=== PATIENT | male | born 1955 | race Caucasian/White ===

== ENCOUNTER 2019-10-16 06:10 | Day surgery (SDC) | payer SELFPAY ==
[~2019-10-16] VITALS: Ht 185.4 cm; Wt 105.5 kg
[2019-10-16] VITALS (12 sets, daily range): BP systolic 94–129; BP diastolic 64–90
[2019-10-16] MEDS ORDERED: normal saline 1000ml 1,000 ML IV SCH (06:30)
[2019-10-16] MEDS ORDERED: MIDAZolam 1mg/ml 10ml vial IV ONE (06:30)
[2019-10-16] MEDS ORDERED: fentaNYL/PF 50MCG/1 ML 2ML syringe IV ONE (06:30)
[2019-10-16] MEDS ORDERED: DILT240C90 PO (06:37)
[2019-10-16] MEDS ORDERED: RIVA20TA PO (06:37)
[2019-10-16] MEDS ORDERED: amlodipine PO (06:37)
[2019-10-16] MEDS ORDERED: NITR0.4T51 SL (06:37)
[2019-10-16] MEDS ORDERED: FLEC100T2 PO ×2 (06:37)
[2019-10-16] MEDS ORDERED: METO-467 PO (06:37)
[2019-10-16 07:13] LABS: BASOPHILS % (AUTO) 0.4 % (0-1); EOSINOPHILS # (AUTO) 0.1 X10'3 (0-0.9); EOSINOPHILS % (AUTO) 1.7 % (0-6); HEMOGLOBIN 16.3 g/dl (14.0-17.9); LYMPHOCYTES # (AUTO) 1.5 X10'3 (1.1-4.8); LYMPHOCYTES % (AUTO) 24.1 % (21-51); MEAN CORPUSCULAR HEMOGLOBIN 31.3 PG (27.0-31.0); MEAN CORPUSCULAR VOLUME 92.2 FL (78-98); MEAN PLATELET VOLUME 7.6 FL (7.4-10.4); MONOCYTES # (AUTO) 0.7 X10'3 (0-0.9); MONOCYTES % (AUTO) 10.6 % (2-12); NEUTROPHILS % (AUTO) 63.2 % (42-75); PLATELET COUNT 199 X10'3 (140-440); RED CELL DISTRIBUTION WIDTH 13.7 % (11.5-14.5); WHITE BLOOD COUNT 6.4 X10'3 (4.5-11.0)
[2019-10-16 07:36] LABS: ALBUMIN 3.9 G/DL (3.4-5.0); ANION GAP 15 (8-16); BLOOD UREA NITROGEN 17 MG/DL (7-18); BUN/CREATININE RATIO 14.2 (5.4-32.0); CHLORIDE 101 MMOL/L (99-107); GLUCOSE 208 MG/DL (70-104); MAGNESIUM 2.1 MG/DL (1.5-2.4); POTASSIUM 3.9 MMOL/L (3.5-5.1); SODIUM 138 MMOL/L (135-145); TOTAL CARBON DIOXIDE 21.9 MMOL/L (24-32); eGFR 61 ML/MIN
--- NOTE | 2019-10-16 09:10 | NUR ---
Telephoned Dr. Anny shelby med rec. stated to continue all meds, no changes necessary.
== END 2019-10-16 10:30 | disposition home or self-care (01) ==
LOC: SSTAY O 06:10
PROVIDERS: ATTEND Internal Medicine Cardiovascular Disease
DX: I48.91 Unspecified atrial fibrillation (principal); Z79.899 Other long term (current) drug therapy
CPT/HCPCS: 36415; 80048; 83735; 85025; 85610; 92960; 93005; J2250; J3010; J7030

== ENCOUNTER 2024-10-24 09:00 | Inpatient (IN) | payer SELFPAY ==
[2024-10-24] VITALS (21 sets, daily range): BP systolic 82–124; BP diastolic 47–92; PULSE 30–78; RESP 6–18; TEMP 97–97.8; O2SAT 93–100
[~2024-10-24] VITALS: Ht 185.4 cm; Wt 100.2 kg
[~2024-10-24 09:00] MED LIST: DILT240C90 PO; FLEC100T2 PO; METO-467 PO; NITR0.4T51 SL; RIVA20TA PO; amlodipine PO
[2024-10-24] MEDS ORDERED: AMLO2.5T2 PO (09:26)
--- NOTE | 2024-10-24 09:27 | ELECTROCARDIOGRAPH REPORT ---
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 DENZEL Bishop Measurements Intervals [place] Rate: 76 P: 0 NE: 0 QRS: -27 QRSD: 136 T: -83 QT: 346 QTc: 390 Interpretive Statements Atrial fibrillation IVCD, consider atypical RBBB Electronically Signed On 10-24-2024 15:51:[address] DENZEL Bishop Please click the below link to view image of tracing.
[2024-10-24] MEDS ORDERED: fentaNYL/PF 50MCG/1 ML 2ML syringe ONE (09:37)
[2024-10-24] MEDS ORDERED: atropine 0.1mg/ml 10ml syringe ONE ×2 (09:38→10:17)
[2024-10-24] MEDS ORDERED: midazolam 1 mg/ML 2ml injection ONE ×4 (09:38→10:01)
[2024-10-24 09:48] LABS: MEAN PLATELET VOLUME 8.3 FL (7.4-10.4); RED CELL DISTRIBUTION WIDTH 13.5 % (11.5-14.5)
[2024-10-24 09:59] LABS: INR 1.2 INR
[2024-10-24 10:01] LABS: CREATININE 0.98 MG/DL (0.60-1.10); TOTAL CARBON DIOXIDE 26.1 MMOL/L (24-32); eCRCL 78 ML/MIN; eGFR 75 ML/MIN
--- NOTE | 2024-10-24 10:28 | CARDIOLOGY REPORT ---
DATE OF SERVICE: 10/24/2024 DICTATING PHYSICIAN: MYKEL CHEN DO PROCEDURE: DC cardioversion. PREPROCEDURAL DIAGNOSIS: Atrial fibrillation. POSTPROCEDURAL DIAGNOSIS: Atrial fibrillation, cardioverted to sinus rhythm. DESCRIPTION OF PROCEDURE: The patient was sedated with fentanyl and Versed. He was then given one 200 joule synchronized shock resulting in conversion to sinus bradycardia. COMPLICATIONS: There were no complications. PLAN: Ongoing medical therapy. FINAL DIAGNOSIS: Atrial fibrillation, cardioverted to a sinus mechanism. MYKEL CHEN DO TID: [id number] RECEIPT: [id number] SILVIA/MARIAH/VAN
[2024-10-24] MEDS: glycopyrrolate 0.2mg/ml inj IV STA (10:51)
--- NOTE | 2024-10-24 11:00 | ELECTROCARDIOGRAPH REPORT ---
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 DENZEL Bishop Measurements Intervals [place] Rate: 34 P: 0 MD: 0 QRS: 83 QRSD: 120 T: 203 QT: 533 QTc: 401 Interpretive Statements Junctional rhythm Nonspecific intraventricular conduction delay Repol abnrm suggests ischemia, anterolateral Electronically Signed On 10-24-2024 15:51:[address] DENZEL Bishop Please click the below link to view image of tracing.
[2024-10-24] MEDS: fentaNYL/PF 50MCG/1 ML 2ML syringe IV ONE (12:00)
[2024-10-24] MEDS: flumazenil 0.1 mg/ml inj. 10mL vial IV ONE (12:00)
[2024-10-24] MEDS: MIDAZolam 1mg/ml 10ml vial IV ONE (12:00)
[2024-10-24] MEDS: normal saline 1000ml 1,000 ML IV SCH ×2 (17:05→18:20)
--- NOTE | 2024-10-24 17:20 | PROGRESS NOTE ---
Progress Note Cardiology Providers to CC ~ Subjective Subjective No complaints Objective Result Diagram: 10/24/24 0940 10/24/24 0940 Objective He had a successful cardioversion this AM but he has been bradycardic with heart rates 30s and high 20s He has also had pauses of up to 10 seconds. Atropine and Robinul have had almost no effect on his heart rate. Current rhythm is junctional @ 30bpm. Coagulation Studies Laboratory Tests Test 10/24/24 09:40 Prothrombin Time 12.5 SECONDS (9.0-12.0) H INR International Normalized Ratio 1.2 INR Coagulation Comments Problem\Assessment\Plan Additional Plan Admit for observation. MYKEL CHEN DO Oct 24, 2024 17:20
[2024-10-25 02:00] VITALS: BP 108/59; PULSE 56; RESP 20; TEMP 97.2; O2SAT 93
[2024-10-25 06:00] VITALS: BP 113/69; PULSE 51; RESP 15; TEMP 98.9; O2SAT 93
[2024-10-25 09:42] VITALS: BP_SYST 138
--- NOTE | 2024-10-25 09:46 | PROGRESS NOTE ---
Progress Note Cardiology Providers to CC ~ Subjective Subjective No complaints Objective Result Diagram: 10/24/2440 10/24/24939 Objective VSS Rhythm strip just handed to me shows SR @ 62 bpm. No pauses last night Coagulation Studies Laboratory Tests Test 10/24/24 09:40 Prothrombin Time 12.5 SECONDS (9.0-12.0) H INR International Normalized Ratio 1.2 INR Coagulation Comments Problem\Assessment\Plan Additional Plan Discharge to home. MYKEL CHEN DO Oct 25, 2024 09:46
[2024-10-25] MEDS ORDERED: PROP10TA10 PO (10:06)
--- NOTE | 2024-10-26 04:48 | DISCHARGE SUMMARY ---
DATE OF DISCHARGE: 10/25/2024 DICTATING PHYSICIAN: MYKEL CHEN DO ADMITTING DIAGNOSES: * Atrial fibrillation, recently cardioverted. * Marked bradycardia with junctional rhythm and periodic pauses of up to 10 seconds. COMPLICATIONS: None. CONSULTATIONS: None. CONDITION AT DISCHARGE: Stable and improved. CLINICAL HISTORY: This 69-year-old man presented as an outpatient on 10/24 for DC cardioversion. He was in fact successfully cardioverted from atrial fibrillation to sinus to an organized rhythm; however, he was markedly bradycardic with junctional heart rates in the high 20s and low to mid 30s. Once again, he was poorly responsive to atropine. His rate affecting medicines included flecainide 100 mg twice a day and metoprolol succinate 50 mg daily, which had been prescribed for control of the ventricular response when he was in atrial fibrillation. The metoprolol was held. He was observed overnight. His heart rate gradually improved and he resumed a sinus rhythm. There were no other pauses observed. He was deemed stable for discharge. His discharge medications include flecainide 100 mg twice a day, amlodipine 10 mg twice a day, Xarelto 20 mg twice a day. He has been given a prescription of propranolol 10 mg, which he is instructed not to begin taking until Sunday, 10/27. The small dose of beta-marisela is intended to avoid withdrawal from beta blockers, increased myocardial irritability, and the potential for recurrence of atrial fibrillation. He will be seen on 10/27 and again within 2 weeks following his discharge from the hospital today. MYKEL CHEN DO TID: [id number] RECEIPT: [id number] SILVIA/HA GALLARDO
== END 2024-10-25 11:12 | disposition home or self-care (01) | DRG 310 ==
LOC: SSTAY O 09:00 → PCU 3S 17:04
PROVIDERS: ADMIT Internal Medicine Cardiovascular Disease; ATTEND Internal Medicine Cardiovascular Disease
PROC: 5A2204Z Restoration of Cardiac Rhythm, Single (ICD-10-PCS; principal; 2024-10-24)
DX: I48.91 Unspecified atrial fibrillation (principal); Z79.899 Other long term (current) drug therapy
CPT/HCPCS: 36415; 80053; 83735; 85025; 85610; 92960; 93005; 99152; 99153; G0378; J0461; J2250; J2312; J3010; J3490; J7030